=== PATIENT | male | born 1990 | race Two or more races ===

== ENCOUNTER 2020-07-23 01:24 | Emergency (ER) | payer BC ==
[~2020-07-23] VITALS: Ht 167.6 cm; Wt 74.0 kg
--- NOTE | 2020-07-23 02:35 | PHYS DOC ---
Past Medical History Past Medical History: Sickle Cell Disease Past Surgical History: Other Additional Past Surgical Histo: HIP SX ON THE RIGHT Smoking Status: Never Smoker Alcohol Use: None General Adult EDM: Chief Complaint: CHEST PAIN-CARDIAC NATURE HPI: HPI: Patient is a 29 year old male with past medical history sickle cell presents with a chief complaint of sickle cell crisis. Patient states he has diffuse pain throughout his body particularly in his left shoulder his chest and right leg. Patient states sudden onset of symptoms around 2300 hrs. Patient was diagnosed with sickle cell in 2014. He states he takes hydroxyurea daily and has not missed any doses. Patient states he was hospitalized July 14- for sickle cell crisis at [facility]. During hospitalization at [facility] patient stated he required a blood transfusion. Patient states that discharged his symptoms had improved. Patient is chest pain is worse with deep breath but is always constant. Patient denies any nausea vomiting or diaphoresis. Review of Systems: Review of Systems: Constitutional: Denies fever or chills. [] Eyes: Denies change in visual acuity. [] HENT: Denies nasal congestion or sore throat. [] Respiratory: Denies cough or shortness of breath. [] Cardiovascular: Positive chest pain GI: Denies abdominal pain, nausea, vomiting, bloody stools or diarrhea. [] : Denies dysuria. [] Musculoskeletal: Positive back pain Positive joint pain. [] Integument: Denies rash. [] Neurologic: Denies headache, focal weakness or sensory changes. [] Endocrine: Denies polyuria or polydipsia. [] Lymphatic: Denies swollen glands. [] Psychiatric: Denies depression or anxiety. [] Heart Score: C/O Chest Pain: Yes HEART Score for Chest Pain: HEART Score for Chest Pain Response (Comments) Value History Slighlty/Non-Suspicious 0 ECG Normal 0 Age < 45 0 Risk Factors No Risk Factors 0 Troponin < Normal Limit 0 Total 0 Risk Factors: Risk Factors: DM, Current or recent (<one month) smoker, HTN, HLP, family history of CAD, obesity. Risk Scores: Score 0 - 3: 2.5% MACE over next 6 weeks - Discharge Home Score 4 - 6: 20.3% MACE over next 6 weeks - Admit for Clinical Observation Score 7 - 10: 72.7% MACE over next 6 weeks - Early Invasive Strategies Allergies: Allergies: Allergies Coded Allergies Type Severity Reaction Last Updated Verified No Known Drug Allergies 07/23/20 No Physical Exam: PE: Constitutional: Well developed, well nourished, no acute distress, non-toxic appearance. [] HENT: Normocephalic, atraumatic, bilateral external ears normal, oropharynx moist, no oral exudates, nose normal. [] Eyes: PERRLA, EOMI, conjunctiva normal, no discharge. [] Neck: Normal range of motion, no tenderness, supple, no stridor. [] Cardiovascular:Heart rate regular rhythm, no murmur [] Lungs & Thorax: Bilateral breath sounds clear to auscultation [] Abdomen: Bowel sounds normal, soft, no tenderness, no masses, no pulsatile masses. [] Skin: Warm, dry, no erythema, no rash. [] Back: No tenderness, no CVA tenderness. [] Extremities: No tenderness, no cyanosis, no clubbing, ROM intact, no edema. [] Neurologic: Alert and oriented X 3, normal motor function, normal sensory function, no focal deficits noted. [] Psychologic: Affect normal, judgement normal, mood normal. [] Current Patient Data: Vital Signs: Vital Signs Date Time Temp Pulse Resp B/P (MAP) Pulse Ox O2 Delivery O2 Flow Rate FiO2 07/23/20 01:25 98.6 24 139/71 (93) 97 Room Air 98.6 EKG: EKG: [] EKG performed at 0121 hours heart rate [address] elevation no ST depression no acute [place] Radiology/Procedures: Radiology/Procedures: [] Impression: INDICATION: Reason: chest pain / Spl. Instructions: / History: COMPARISON: None. FINDINGS: Single view of chest obtained. No focal airspace consolidation. Cardiomediastinal contour is mildly prominent No acute osseous abnormality. IMPRESSION: * No focal airspace consolidation or edema. Course & Med Decision Making: Course & Med Decision Making Pertinent Labs and Imaging studies reviewed. (See chart for details) [] Patient was evaluated for chief complaint. Work-up consisted of laboratory analysis logic imaging and EKG. Results reviewed and discussed with patient. EKG ischemic changes. Chest x-ray no abnormalities. Treatment included 2 L of IV fluid. Patient received a total of 12 mg morphine (4mg doses x 3). Hemoglobin greater than 8. Xray negative Patients pain improved. Patient ambulated with steady gait, Discharged home on percocet Dragon Disclaimer: Dragon Disclaimer: This electronic medical record was generated, in whole or in part, using a voice recognition dictation system. Departure Departure Impression: Primary Impression: Sickle cell anemia Additional Impression: Sickle cell anemia with pain Disposition: HOME / SELF CARE / HOMELESS Condition: STABLE Referrals: NO PCP (PCP) Patient Instructions: Chronic Pain, Sickle Cell Anemia Scripts Oxycodone/Apap 5-325 (PERCOCET 5-325 MG TABLET ) 1 Each Tablet 1 TAB PO PRN TID PRN for PAIN MDD 3 Tablet(s) for 5 Days, #15 TAB 0 Refills Prov: EBONY IZQUIERDO DO 07/23/20 EBONY IZQUIERDO DO July 23, 2020 02:35
[2020-07-23 02:37] LABS: BASO # 0.1 x10^3/uL (0.0-0.2); BASO % 1 % (0-3); EOS # 0.1 x10^3/uL (0.0-0.7); EOS % 1 % (0-3); HEMATOCRIT 25.8 % (39.0-53.0); HEMOGLOBIN 8.5 g/dL (13.0-17.5); LYMPH # 3.1 x10^3/uL (1.0-4.8); LYMPH % 24 % (24-48); MEAN CORPUSCULAR HEMOGLOBIN 30 pg (25-35); MEAN CORPUSCULAR HGB CONC 33 g/dL (31-37); MEAN CORPUSCULAR VOLUME 90 fL (79-100); MONO # 1.2 x10^3/uL (0.0-1.1); MONO % 9 % (0-9); NEUT # 8.7 x10^3/uL (1.8-7.7); NEUT % 66 % (31-73); PLATELET COUNT 602 x10^3/uL (140-400); RED BLOOD COUNT 2.87 x10^6/uL (4.30-5.70); RED CELL DISTRIBUTION WIDTH 29.5 % (11.5-14.5); WHITE BLOOD COUNT 13.2 x10^3/uL (4.0-11.0)
[2020-07-23 02:48] LABS: CALCIUM 8.7 mg/dL (8.5-10.1); CREATININE 0.7 mg/dL (0.7-1.3); GFR 134.3; POTASSIUM 3.3 mmol/L (3.5-5.1)
[2020-07-23] MEDS: MORPHINE SULFATE 4 MG/ML VIAL. IV ONE ×3 (02:50→05:50)
[2020-07-23 02:55] LABS: ALBUMIN/GLOBULIN RATIO 0.7 (1.0-1.7); TOTAL BILIRUBIN 2.6 mg/dL (0.2-1.0); TOTAL PROTEIN 7.3 g/dL (6.4-8.2)
[2020-07-23 03:47] LABS: ANISOCYTOSIS MARKED; HYPOCHROMIA SLIGHT; PLT ESTIMATE INCREASED (ADEQUATE); POIKILOCYTOSIS MOD; POLYCHROMASIA MARKED
[2020-07-23 03:48] LABS: HOWELL-JOLLY BODIES PRESENT; OVALOCYTES FEW; SICKLE CELLS OCC; TARGET CELLS OCC
[2020-07-23] MEDS: IV NORMAL SALINE 1000ML BAG 1,000 ML IV ONE (04:14)
--- NOTE | 2020-07-23 04:38 | RAD ---
INDICATION: Reason: chest pain / Spl. Instructions: / History: COMPARISON: None. FINDINGS: Single view of chest obtained. No focal airspace consolidation. Cardiomediastinal contour is mildly prominent No acute osseous abnormality. IMPRESSION: * No focal airspace consolidation or edema. Electronically signed by: Chandan Gibson MD (07/23/2020 4:35 AM) [id number]
--- NOTE | 2020-07-23 05:01 | EKG ---
[facility] [address] [place] [id number] Test Date: 2020-07-23 Test Time: 01:21:11 Pat Name: SANDY COLLAZO Department: Room: Gender: M [employer]: : 1990 Requested By: EBONY IZQUIERDO Order Number: [id number] Reading MD: Measurements Intervals [place] Rate: 93 P: 28 [place]: 152 QRS: 73 QRSD: 94 T: 44 QT: 354 QTc: 443 Interpretive Statements SINUS RHYTHM OTHERWISE NORMAL ECG RI6.01 No previous ECG available for comparison
[2020-07-23] MEDS ORDERED: OXYC1TAB15 PO (05:44)
[2020-07-23 05:52] VITALS: BP 133/72
== END 2020-07-23 06:00 | disposition home or self-care (01) ==
LOC: ER 01:24
DX: D57.00 Hb-SS disease with crisis, unspecified (principal); R07.89 Other chest pain
CPT/HCPCS: 36415; 71045; 80053; 84484; 85025; 93005; 96361; 96374; 96376; 99285; J2270; J7030